=== PATIENT | female | born 1940 | race Caucasian/White ===

== ENCOUNTER 2016-03-26 10:06 | Day surgery (SDC) | payer OTHER ==
[~2016-03-26] VITALS: Ht 162.6 cm; Wt 92.0 kg
[~2016-03-26 10:06] MED LIST: ADULT LOW DOSE81 M1 PO; ALPRAZOLAM0.25 M2 PO; AMLODIPINE BESY10 MG PO; AMLODIPINE BESYL5 MG PO; AMOXICILLIN875 MG PO; APRESOLINE100 MG PO; APRESOLINE25 MG PO; APRESOLINE50 MG PO; ASMANEX HFA13 GM IH; ASMANEX TW200 MICRO1 IH; ASMANEX TW200 MICROG IH; ASPIR-LOW81 MG PO; ATIVAN0.5 MG PO; BYSTOLIC10 MG PO; CARVEDILOL25 MG PO; CATAPRES0.2 MG PO; CATAPRES0.3 MG PO; CIPRO500 MG PO; CLONIDINE HCL0.2 MG PO; COREG25 M1 PO; COZAAR100 MG PO; CRESTOR20 MG PO; CRESTOR5 MG PO; CYANOCOBALAM1000 MCG PO; DOXAZOSIN MESYLA1 MG PO; DOXAZOSIN MESYLA4 MG PO; ELIQUIS5 MG PO; ENALAPRIL MALEA10 MG PO; ENALAPRIL MALEAT5 MG PO; EPIPEN ADU0.3 MG/0.3 IM; EPOGEN,PRO20000 UNIT SC; FLAGYL500 MG PO; FUROSEMIDE20 MG PO; FUROSEMIDE40 MG PO; FUROSEMIDE80 MG PO; HUMALOG MI100 UNIT/5 SC; HUMALOG100 UNIT/1 SC; HUMALOG100 UNIT/2 SC; HYDRALAZINE HC100 MG PO; HYDRALAZINE HCL50 MG PO; HYDROCHLOROTHIA25 MG PO; IRON325 M1 PO; IRON325 MG PO; KALEXATE454 GM PO; KAYEXALATE453.6 GM PO; LANTUS100 UNIT/2 SQ; LASIX40 MG PO; LASIX80 MG PO; LEVEMIR FL100 UNIT/1 SC; LEVEMIR FL100 UNITS/ SC; LEVEMIR100 UNIT/2 SC; LEVOFLOXACIN500 MG PO; LISINOPRIL5 MG PO; LO-DOSE ASPIRIN81 M1 PO; LOSARTAN POTASS25 MG PO; LOSARTAN POTASS50 MG PO; MACROBID100 MG PO; MEDROL DOSEPAK4 MG PO; METOLAZONE2.5 MG PO; MIRTAZAPINE7.5 MG PO; NABI650T PO; NIFEDICAL XL60 MG PO; NORVASC10 MG PO; NOVOLOG 10100 UNITS/ SC; NOVOLOG PE100 UNITS/ SC; NOVOLOG100 UNIT/1 SQ; NOVOLOG100 UNIT/2 SQ; PANTOPRAZOLE SO40 MG PO; PERCOCET 5/31 TABLET PO; PROAIR HFA8.5 GM IH; PROCRIT40000 UNI1 IV; PROVENTIL HFA6.7 GM IH; SKELAXIN800 MG PO; SPIRONOLACTONE25 MG PO; STOOL SOFTENER100 MG PO; TESSALON200 MG PO; TOPROL XL100 MG PO; TRICOR145 MG PO; Tums,OsCal PO; VASOTEC10 MG PO; VASOTEC20 MG PO; VENTOLIN HFA18 GM IH; VITAMIN A10000 UNIT PO; VITAMIN D-32000 UNI2 PO; VITAMIN D2000 INTUN PO; VITAMIN D400 UNIT PO; XANAX0.25 MG PO; ZOFRAN4 MG PO; [UNRECOGNIZED DRUG - OTHER] PO
[2016-03-26 10:35] VITALS: BP 149/67
[2016-03-26 10:48] LABS: POINT-OF-CARE METER ID UU14174212
[2016-03-26 13:32] VITALS: BP 139/50
[2016-03-26 14:21] VITALS: BP 146/50
== END 2016-03-26 15:00 | disposition home or self-care (01) ==
LOC: SDC 10:06
PROVIDERS: Surgery
PROC: 03180ZD Bypass Left Brachial Artery to Upper Arm Vein, Open Approach (ICD-10-PCS; principal; 2016-03-26)
DX: I13.2 Hypertensive heart and chronic kidney disease with heart failure and with stage 5 chronic kidney disease, or end stage renal disease (principal); I50.9 Heart failure, unspecified; E11.22 Type 2 diabetes mellitus with diabetic chronic kidney disease; N18.6 End stage renal disease; E78.5 Hyperlipidemia, unspecified; Z79.01 Long term (current) use of anticoagulants; Z79.4 Long term (current) use of insulin; Z88.8 Allergy status to other drugs, medicaments and biological substances; Z91.040 Latex allergy status; Z91.018 Allergy to other foods; Z82.49 Family history of ischemic heart disease and other diseases of the circulatory system; Z82.3 Family history of stroke; Z80.1 Family history of malignant neoplasm of trachea, bronchus and lung; Z83.79 Family history of other diseases of the digestive system
CPT/HCPCS: 82948; J0690; J1644; J2250; J2405; J2720; J3010

== ENCOUNTER 2016-05-30 18:43 | Emergency (ER) | payer OTHER ==
[~2016-05-30] VITALS: Ht 172.7 cm; Wt 82.4 kg
[2016-05-30 19:35] LABS: EOSINOPHIL (%) 1.8 % (0-5); EOSINOPHIL COUNT 0.1 K/uL (0-0.3); IMMATURE GRANULOCYTE (%) 0.8 % (0.0-0.7); LYMPHOCYTE COUNT 0.4 K/uL (1.0-2.8); MCH 27.8 PG (29.0-34.0); MCHC 32.1 G/DL (30.0-36.0); MCV 86.7 FL (83-99); MEAN PLAT.VOLUME 9.2 uM^3 (9.5-12.4); MONOCYTE (%) 10.2 % (3-12); MONOCYTE COUNT 0.4 K/uL (0-0.8); NEUTROPHIL (%) 75.2 % (45-76); PLATELET COUNT 127 K/uL (156-360); RBC DIS.WIDTH-CV 16.6 % (11.8-14.6); RBC DIS.WIDTH-SD 52.7 % (39-53); RED BLOOD COUNT 3.92 M/uL (3.80-5.20); WHITE BLOOD COUNT 3.9 K/uL (4.1-10.2)
[2016-05-30 19:42] LABS: CHLORIDE 97 mEq/L (99-109); POTASSIUM 3.3 mEq/L (3.7-5.4)
[2016-05-30 19:43] LABS: SODIUM 139 mEq/L (136-147)
[2016-05-30 19:44] LABS: GLUCOSE 139 mg/dL (70-99)
[2016-05-30 19:46] LABS: ANION GAP 12 MEQ/L (2-14)
[2016-05-30 19:48] LABS: GFR ESTIMATE (CALCULATED) 23 mL/min/
[2016-05-30 19:49] LABS: UREA NITROGEN (BUN) 19 mg/dL (9-23)
[2016-05-30 19:55] LABS: TROP-I INTERPRETATION NEGATIVE; TROPONIN-I 0.07 ng/mL (0.0-0.30)
[2016-05-30 21:15] VITALS: BP 154/61
== END 2016-05-30 21:16 | disposition home or self-care (01) ==
LOC: EME → EDSEX 18:43 → EME 18:43 → EDBD 18:43 → EME 21:16
PROVIDERS: Emergency Medicine
DX: R53.1 Weakness (principal); E11.22 Type 2 diabetes mellitus with diabetic chronic kidney disease; I12.0 Hypertensive chronic kidney disease with stage 5 chronic kidney disease or end stage renal disease; N18.6 End stage renal disease; Z99.2 Dependence on renal dialysis; Z79.4 Long term (current) use of insulin; R42 Dizziness and giddiness; R07.9 Chest pain, unspecified; E78.5 Hyperlipidemia, unspecified; Z79.01 Long term (current) use of anticoagulants
CPT/HCPCS: 71010; 80048; 84484; 85025; 93005; 99281; 99285

== ENCOUNTER 2016-06-06 15:50 | Emergency (ER) | payer OTHER ==
[~2016-06-06] VITALS: Ht 165.1 cm; Wt 84.4 kg
[2016-06-06 16:39] LABS: BASOPHIL COUNT 0.1 K/uL (0-0.1); EOSINOPHIL (%) 2.8 % (0-5); EOSINOPHIL COUNT 0.1 K/uL (0-0.3); HEMATOCRIT 33.5 % (36.0-46.0); IMMATURE GRANULOCYTE (%) 0.3 % (0.0-0.7); INSTRUMENT ABS NEUTROPHIL CT 2.2 K/uL; LYMPHOCYTE COUNT 0.5 K/uL (1.0-2.8); MCH 27.6 PG (29.0-34.0); MCHC 31.9 G/DL (30.0-36.0); MCV 86.3 FL (83-99); MEAN PLAT.VOLUME 9.5 uM^3 (9.5-12.4); MONOCYTE (%) 10.6 % (3-12); MONOCYTE COUNT 0.3 K/uL (0-0.8); NEUTROPHIL (%) 68.2 % (45-76); NEUTROPHIL COUNT 2.2 K/uL (1.8-6.4); RBC DIS.WIDTH-CV 17.2 % (11.8-14.6); RBC DIS.WIDTH-SD 53.8 % (39-53); RED BLOOD COUNT 3.88 M/uL (3.80-5.20); WHITE BLOOD COUNT 3.2 K/uL (4.1-10.2)
[2016-06-06 16:40] LABS: PLATELET COUNT 210 K/uL (156-360)
[2016-06-06 16:46] LABS: CHLORIDE 96 mEq/L (99-109); POTASSIUM 3.4 mEq/L (3.7-5.4); SODIUM 138 mEq/L (136-147)
[2016-06-06 16:47] LABS: GLUCOSE 156 mg/dL (70-99)
[2016-06-06 16:49] LABS: ANION GAP 14 MEQ/L (2-14)
[2016-06-06 16:51] LABS: GFR ESTIMATE (CALCULATED) 23 mL/min/
[2016-06-06 16:52] LABS: UREA NITROGEN (BUN) 16 mg/dL (9-23)
[2016-06-06 20:48] VITALS: BP 122/49
== END 2016-06-06 20:49 | disposition home or self-care (01) ==
LOC: EME 15:50
PROVIDERS: Emergency Medicine
DX: I12.0 Hypertensive chronic kidney disease with stage 5 chronic kidney disease or end stage renal disease (principal); N18.6 End stage renal disease; Z99.2 Dependence on renal dialysis; G62.9 Polyneuropathy, unspecified; E11.9 Type 2 diabetes mellitus without complications; E78.5 Hyperlipidemia, unspecified; K21.9 Gastro-esophageal reflux disease without esophagitis; Z85.828 Personal history of other malignant neoplasm of skin; Z79.4 Long term (current) use of insulin
CPT/HCPCS: 71010; 80048; 85025; 99281; 99285

== ENCOUNTER 2016-08-14 15:29 | Emergency (ER) | payer OTHER ==
[~2016-08-14] VITALS: Ht 165.1 cm; Wt 88.1 kg
[2016-08-14 16:55] LABS: HEMATOCRIT 37.5 % (36.0-46.0); MCH 28.5 PG (29.0-34.0); MCHC 32.3 G/DL (30.0-36.0); MCV 88.4 FL (83-99); MEAN PLAT.VOLUME 9.7 uM^3 (9.5-12.4); PLATELET COUNT 164 K/uL (156-360); RBC DIS.WIDTH-CV 17.9 % (11.8-14.6); RED BLOOD COUNT 4.24 M/uL (3.80-5.20); WHITE BLOOD COUNT 4.1 K/uL (4.1-10.2)
[2016-08-14 17:05] LABS: CHLORIDE 97 mEq/L (99-109); POTASSIUM 3.5 mEq/L (3.7-5.4); SODIUM 135 mEq/L (136-147)
[2016-08-14 17:06] LABS: GLUCOSE 155 mg/dL (70-99)
[2016-08-14 17:08] LABS: ANION GAP 12 MEQ/L (2-14)
[2016-08-14 17:10] LABS: GFR ESTIMATE (CALCULATED) 14 mL/min/
[2016-08-14 17:11] LABS: UREA NITROGEN (BUN) 29 mg/dL (9-23)
[2016-08-14 18:00] LABS: ADD MIUA? YES; BILIRUBIN NEGATIVE; BLOOD NEGATIVE; COLOR YELLOW ((YELLOW)); GLUCOSE (STRIP) NEGATIVE; KETONES NEGATIVE; LEUKOCYTES NEGATIVE; NITRITE NEGATIVE; PROTEIN (STRIP) 100; SPECIFIC GRAVITY 1.005 (1.000-1.030); UROBILINOGEN 0.2 MG/DL (0.2-1.0)
[2016-08-14 18:21] LABS: BACTERIA NONE SEEN /HPF; EPITHELIAL CELLS RARE /HPF; MUCUS NONE SEEN /LPF; RED BLOOD CELLS 0-5 /HPF (0-5); UCUL ADDED? NO; WHITE BLOOD CELLS 0-5 /HPF (0-5)
[2016-08-14 18:42] VITALS: BP 158/54
== END 2016-08-14 18:45 | disposition home or self-care (01) ==
LOC: EME 15:29
PROVIDERS: Emergency Medicine
DX: T42.6X5A Adverse effect of other antiepileptic and sedative-hypnotic drugs, initial encounter (principal); R53.1 Weakness; R53.83 Other fatigue; R20.0 Anesthesia of skin; R30.0 Dysuria; I13.2 Hypertensive heart and chronic kidney disease with heart failure and with stage 5 chronic kidney disease, or end stage renal disease; E11.22 Type 2 diabetes mellitus with diabetic chronic kidney disease; N18.6 End stage renal disease; I50.9 Heart failure, unspecified; Z99.2 Dependence on renal dialysis; Z79.4 Long term (current) use of insulin; E78.5 Hyperlipidemia, unspecified; K21.9 Gastro-esophageal reflux disease without esophagitis; Z85.828 Personal history of other malignant neoplasm of skin
CPT/HCPCS: 80048; 81003; 85027; 87086; 99281; 99285

== ENCOUNTER 2016-10-06 12:50 | Emergency (ER) | payer OTHER ==
[~2016-10-06] VITALS: Ht 177.8 cm; Wt 89.5 kg
[2016-10-06 14:08] LABS: HEMATOCRIT 27.5 % (36.0-46.0); MCH 29.5 PG (29.0-34.0); MCHC 32.7 G/DL (30.0-36.0); MCV 90.2 FL (83-99); MEAN PLAT.VOLUME 8.9 uM^3 (9.5-12.4); PLATELET COUNT 154 K/uL (156-360); RBC DIS.WIDTH-CV 16.3 % (11.8-14.6); RBC DIS.WIDTH-SD 53.1 % (39-53); RED BLOOD COUNT 3.05 M/uL (3.80-5.20); WHITE BLOOD COUNT 5.5 K/uL (4.1-10.2)
[2016-10-06 14:18] LABS: CHLORIDE 101 mEq/L (99-109); SODIUM 139 mEq/L (136-147)
[2016-10-06 14:20] LABS: GLUCOSE 122 mg/dL (70-99); INTER. NORMALIZED RATIO 1.7; PROTHROMBIN TIME 18.7 SEC (10.2-12.9)
[2016-10-06 14:28] LABS: PTT 34.3 SEC (25-37)
[2016-10-06 15:29] LABS: UREA NITROGEN (BUN) 47 mg/dL (9-23)
[2016-10-06 15:30] LABS: GFR ESTIMATE (CALCULATED) 15 mL/min/
[2016-10-06 15:31] LABS: ANION GAP 11 MEQ/L (2-14)
[2016-10-06] MEDS ORDERED: KEFLEX500 MG PO (16:31)
[2016-10-06 16:59] VITALS: BP 151/48
== END 2016-10-06 17:00 | disposition home or self-care (01) ==
LOC: EME 12:50
PROVIDERS: Physician Assistant
DX: S80.11XA Contusion of right lower leg, initial encounter (principal); W01.198A Fall on same level from slipping, tripping and stumbling with subsequent striking against other object, initial encounter; E11.22 Type 2 diabetes mellitus with diabetic chronic kidney disease; Z79.4 Long term (current) use of insulin; K21.9 Gastro-esophageal reflux disease without esophagitis; E78.5 Hyperlipidemia, unspecified; Z99.2 Dependence on renal dialysis; N18.6 End stage renal disease; Z79.84 Long term (current) use of oral hypoglycemic drugs
CPT/HCPCS: 73564; 80048; 85027; 85610; 85730; 93971; 99281; 99284